=== PATIENT | female | born 1985 | race Caucasian/White ===

== ENCOUNTER 2022-03-17 14:21 | Emergency (ER) | payer MEDICAID ==
[~2022-03-17] VITALS: Ht 157.5 cm; Wt 90.7 kg
[2022-03-17 14:53] LABS: *URINE HCG, QUAL NEG (NEGATIVE)
[2022-03-17 14:55] LABS: *BILIRUBIN,URIN NEGATIVE (NEGATIVE); *BLOOD, URINE NEGATIVE (NEGATIVE); *CLARITY,URINE CLEAR (CLEAR); *COLOR,URINE YELLOW (YELLOW); *KETONES,URINE NEGATIVE (NEGATIVE); *UROBILINOGEN,URINE 0.2 E.U./dl (NORMAL); LEUKOCYTE ESTERASE ,URINE TRACE (NEGATIVE); NITRITE, URINE NEGATIVE (NEGATIVE); UGLUCOSE NEGATIVE (NEGATIVE)
[2022-03-17] MEDS ORDERED: CEFTRIAXONE 500 MG VIAL IM ONE (15:00)
[2022-03-17] MEDS ORDERED: DOXY100C5 PO ×2 (15:01→15:10)
[2022-03-17] MEDS ORDERED: METR500T PO ×2 (15:01→15:10)
[2022-03-17] MEDS ORDERED: CEFTRIAXONE 500 MG VIAL ONE (15:03)
[2022-03-17] MEDS ORDERED: LIDOCAINE HCL 1% 20 ML VIAL ONE (15:03)
[2022-03-17 16:23] LABS: BACTERIA,URINE NONE SEEN /HPF (NONE SEEN); RBC,URINE 0-3 /HPF (0-3); SQUAMOUS EPITHELIAL CELL,UR FEW /HPF (NONE SEEN); WBC,URINE 0-3 /HPF (0-3)
[2022-03-19 03:06] LABS: *GC NAA Negative (Negative)
[2022-03-19 17:06] LABS: *TRIC.VAG. NAA Negative (Negative)
== END 2022-03-17 15:16 | disposition home or self-care (01) ==
LOC: ER 14:21
DX: N76.0 Acute vaginitis (principal); Z11.3 Encounter for screening for infections with a predominantly sexual mode of transmission
CPT/HCPCS: 99283; 81001; 84703; 87081; 96372; 87491 ×2; 87591; J0696; J3490; A4663

== ENCOUNTER 2025-04-22 15:17 | Emergency (ER) | payer MEDICAID, OTHER ==
[~2025-04-22] VITALS: Ht 142.2 cm; Wt 77.6 kg
[~2025-04-22 15:17] MED LIST: DOXY100C5 PO; METR500T PO
[2025-04-22] MEDS ORDERED: METR500T PO (17:15)
[2025-04-22] MEDS ORDERED: AZIT500T PO (17:15)
[2025-04-22] MEDS ORDERED: DIPH1TAB PO (17:15)
[2025-04-22 17:37] LABS: *CLARITY,URINE CLEAR (CLEAR); *COLOR,URINE YELLOW (YELLOW); *KETONES,URINE 1+ (NEGATIVE); *PROTEIN,URINE TRACE (NEGATIVE); *UROBILINOGEN,URINE 0.2 E.U./dl (NORMAL); LEUKOCYTE ESTERASE ,URINE NEGATIVE (NEGATIVE); NITRITE, URINE NEGATIVE (NEGATIVE); UGLUCOSE NEGATIVE (NEGATIVE)
[2025-04-22 17:39] VITALS: BP 124/68; TEMP 98; O2SAT 97
[2025-04-22 17:41] LABS: *BILIRUBIN,URIN 1+ (NEGATIVE); *BLOOD, URINE NEGATIVE (NEGATIVE)
[2025-04-22 17:42] LABS: *URINE HCG, QUAL NEGATIVE (NEGATIVE)
== END 2025-04-22 17:40 | disposition home or self-care (01) ==
LOC: ER 15:17
DX: K52.9 Noninfective gastroenteritis and colitis, unspecified (principal); N76.0 Acute vaginitis; B96.89 Other specified bacterial agents as the cause of diseases classified elsewhere; I10 Essential (primary) hypertension; Z91.018 Allergy to other foods; Z79.899 Other long term (current) drug therapy
CPT/HCPCS: 84703; A4606; A4663